=== PATIENT | female | born 1985 | race Caucasian/White ===

== ENCOUNTER 2017-01-12 19:21 | Emergency (ER) | payer SELFPAY ==
[~2017-01-12] VITALS: Ht 152.4 cm; Wt 63.5 kg
[2017-01-12 21:03] LABS: BASOPHIL % 0.3 % (0-2); PLATELET COUNT 205 x10^3mcL (130-400)
[2017-01-12 21:14] LABS: RED CELL DISTRIBUTION WIDTH 17.2 % (11.5-14.5)
[2017-01-12 23:01] VITALS: BP 118/78
== END 2017-01-12 23:01 | disposition home or self-care (01) ==
LOC: ED 19:21
PROVIDERS: Emergency Medicine
DX: O20.0 Threatened abortion (principal); O99.011 Anemia complicating pregnancy, first trimester; Z3A.09 9 weeks gestation of pregnancy
CPT/HCPCS: 36415; Q0092

== ENCOUNTER 2017-01-20 01:05 | Emergency (ER) | payer SELFPAY ==
[2017-01-20 02:07] LABS: BASOPHIL % 1.6 % (0-2); PLATELET COUNT 199 x10^3mcL (130-400)
[2017-01-20 02:08] LABS: RED CELL DISTRIBUTION WIDTH 15.9 % (11.5-14.5)
[2017-01-20 04:01] VITALS: BP 107/67
== END 2017-01-20 04:01 | disposition home or self-care (01) ==
LOC: ED 01:05
PROVIDERS: Emergency Medicine
DX: O20.0 Threatened abortion (principal); Z3A.11 11 weeks gestation of pregnancy
CPT/HCPCS: 36415

== ENCOUNTER 2017-01-22 19:45 | Emergency (ER) | payer SELFPAY ==
[2017-01-22 21:57] VITALS: BP 128/82
== END 2017-01-22 21:57 | disposition home or self-care (01) ==
LOC: ED 19:45
DX: O20.0 Threatened abortion (principal); Z3A.11 11 weeks gestation of pregnancy

== ENCOUNTER 2019-10-20 11:56 | Emergency (ER) | payer MEDICAID | END 2019-10-20 13:10 | disposition left against medical advice (07) | LOC: ED 11:56 | DX: Z53.21 Procedure and treatment not carried out due to patient leaving prior to being seen by health care provider (principal) ==